=== PATIENT | female | born 1960 | race Caucasian/White ===

== ENCOUNTER 2024-06-15 13:48 | Outpatient (CLI) | payer OTHER ==
[~2024-06-15 13:48] MED LIST: SYNTHROID50 MCG
== END 2024-06-15 13:53 | disposition home or self-care (01) ==
LOC: NUCLEAR 13:48
PROVIDERS: ATTEND Orthopaedic Surgery
DX: M81.0 Age-related osteoporosis without current pathological fracture (principal)